=== PATIENT | female | born 1955 | race Caucasian/White ===

== ENCOUNTER 2023-03-24 17:58 | Emergency (ER) | payer OTHER ==
--- OUTSIDE RECORDS SUMMARY | 2023-03-24 18:02 | XMS REPORT | Continuity of Care Document ---
:1955 Author Organization [facility] t Address [address] [place] [address] [place] [id number] Care Team Providers Name Role Phone Alfred BUCKLEY, Eddie Primary Care Physician Natividad CABALLERO, Gege Messer Attending Clinician [phone] Danny BUCKLEY, Randell Lucas Attending Clinician [phone] Viraj Pereira Attending Clinician Payers Payer Name Policy Type Policy Number Effective Date Expiration Date S ource Problems Condition Condition Condition Status Onset Resolution Last Treating Co mments Source Name Details Category Date Date Treatment Clinician Date Malignant Malignant Problem Resolve 2022-04-14 Memoria tumor of tumor of d 02:59:03 l colon colon [place] (disorder) (disorder) Resolved Problem 04/14/20222004 [facility] Crohn's Crohn's Problem Active 2022-04-14 Me moria disease of disease of 02:59:03 l small small González intestine intestine (disorder) (disorder) Active Problem 04/14/2022 [facility] Lumbar Lumbar Problem Active 2022-04-14 Telly jaime radiculiti radiculiti 02:59:03 l s s Active [place] Problem 04/14/2022 [facility] Paresthesi Paresthes Problem Active 2022-04-14 Memoria a ia 02:59:03 l (finding) (finding) Herm scott Active Problem 04/14/2022 [facility] Peripheral Problem Active 2022-04-14 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 González (disorder) disease (disorder) Active Problem 04/14/2022 [facility] Allergies, Adverse Reactions, Alerts Allergy Allergy Status Severity Reaction(s) Onset Inactive Treating Comm ents Source Name Type Date Date Clinician fernando king Active Dayana bautista [place] Social History Social Habit Start Date Stop Date Quantity Comments Source Sexual orientation Method [facility] Gender identity [facility] Social History 2021-07-22 2021-07-22 [facility] 18:21:59 18:21:59 Sex Assigned At [birth year] [facility] 00:00:00 00:00:00 Smoking Status Start Date Stop Date Source Tobacco smoking consumption unknown [facility] Medications Ordered Filled Start Stop Current Ordering Indication Dosage Frequency Signature Comments Components Source Medication Medication Date Date Medication? Clinician (SIG) Name Name baclofen 10 Yes = 1 tab, Me moria mg oral 7-30 PO, l tablet 21:46: Bedtime, # Padma nn 00 90 tab, 2 Refill(s), Pharmacy: [id number], 165.1, cm, 06/13/21 13:34:00 CDT, Height, 63.182, kg, 06/13/21 13:34:00 CDT, Weight pregabalin Yes 75 mg = 1 Me moria 75 MG Oral 7-15 cap, PO, l Capsule 18:49: QPM, # 30 Padma nn [Lyrica] 00 cap, 3 Refill(s), Pharmacy: [facility] #[id number], 165.1, cm, 06/13/21 13:34:00 CDT, Height, 63.182, kg, 06/13/21 13:34:00 CDT, Weight baclofen 10 Yes 10 mg = 1 M emoria mg oral 6-02 tab, PO, l tablet 19:56: Bedtime, # Padma nn 00 30 tab, 2 Refill(s), Pharmacy: [facility] #[id number], 162.56, cm, 05/01/21 14:34:00 CDT, Height, 64.091, kg, 03/07/21 14:33:00 CDT, Weight losartan 25 Yes 25 mg = 1 M emoria mg oral 4-08 tab, PO, l tablet 19:50: Daily, # [place] 00 30 tab, 1 Refill(s) Immunizations Ordered Immunization Filled Immunization Date Status Commen ts Source Name Name influenza virus 2021-11-28 Completed [facility] vaccine, 00:00:00 [place] inactivated<sup>1</s up> Vital Signs Vital Name Observation Time Observation Value Comments Source Systolic (mm Hg) 2021-09-24 18:45:00 Telly rial [place] Diastolic (mm Hg) 2021-09-24 18:45:00 Mem orial [place]lez Heart Rate 2021-09-24 18:45:00 [facility] [place] Respitory Rate 2021-09-24 18:45:00 Memori al González Height 2021-09-24 18:45:00 162.56 cm [facility] [place] Weight 2021-09-24 18:45:00 [facility] [place] BMI Calculated 2021-09-24 18:45:00 Memori al [place] Systolic (mm Hg) 2021-07-22 18:21:00 Telly rial [place] Diastolic (mm Hg) 2021-07-22 18:21:00 Mem orial [place] Heart Rate 2021-07-22 18:21:00 [facility] [place] Respitory Rate 2021-07-22 18:21:00 Memori al [place] Height 2021-07-22 18:21:00 165.1 cm [facility] [place] Weight 2021-07-22 18:21:00 [facility] [place] BMI Calculated 2021-07-22 18:21:00 Memori al González Systolic (mm Hg) 2021-06-13 18:13:00 Telly rial [place] Diastolic (mm Hg) 2021-06-13 18:13:00 Mem orial [place] Heart Rate 2021-06-13 18:13:00 [facility] [place] Respitory Rate 2021-06-13 18:13:00 Memori al [place] Height 2021-06-13 18:13:00 165.1 cm [facility] [place] Weight 2021-06-13 18:13:00 [facility] [place] BMI Calculated 2021-06-13 18:13:00 Memori al [place] Systolic (mm Hg) 2021-05-01 19:22:00 Telly rial González Diastolic (mm Hg) 2021-05-01 19:22:00 Mem orial [place] Heart Rate 2021-05-01 19:22:00 [facility] [place] Respitory Rate 2021-05-01 19:22:00 Memori al González Height 2021-05-01 19:22:00 162.56 cm [facility] [place] Systolic (mm Hg) 2021-03-07 19:05:00 Telly rial González Diastolic (mm Hg) 2021-03-07 19:05:00 Mem orial [place] Heart Rate 2021-03-07 19:05:00 [facility] [place] Respitory Rate 2021-03-07 19:05:00 Memori al González Height 2021-03-07 19:05:00 162.56 cm [facility] [place] Weight 2021-03-07 19:05:00 [facility] [place] BMI Calculated 2021-03-07 19:05:00 Memori al González Procedures Procedure Date / Time Performed Performing Clinician Sour e MRI C[facility] SP[facility] WO 2022-03-26 17:24:[facility] replacement Total hysterectomy [facility] scott Anastomosis of gall [facility] Her pérez bladder Plan of Care Planned Activity Planned Date Details Comments Source Future Scheduled 2023-03-24 Hepatitis C screening [facility] Test 18:01:48 (procedure) [code = [id number]] Future Scheduled 2023-03-24 BREAST CANCER [facility] Test 18:01:48 SCREENING [code = BREAST CANCER SCREENING] Future Scheduled 2023-03-[address] [facility] Test 18:01:48 [code = COLONOSCOPY SCREENING] Future Scheduled 2023-03-24 SHINGLES VACCINES (1 Met [facility] Test 18:01:48 of 2) [code = SHINGLES VACCINES (1 of 2)] Future Scheduled 2023-03-24 COVID-19 VACCINE (4 - [facility] Test 18:01:48 Booster for Moderna series) [code = COVID-19 VACCINE (4 - Booster for Moderna series)] Future Scheduled 2023-03-24 65+ PNEUMOCOCCAL [facility] Test 18:01:48 VACCINE (1 - PCV) [code = 65+ PNEUMOCOCCAL VACCINE (1 - PCV)] Future Scheduled 2023-03-24 [facility]ACCINE [facility] 18:01:48 [code = INFLUENZA VACCINE] Encounters Start End Encounter Admission Attending Care Care Encounter Source Date/Time Date/Time Type Type Clinicians Facility Department ID 2022-05-13 2022-05-13 Office Natividad, 1.2.840.1 [id number] [facility] 13:00:00 13:28:29 Visit Gege 22094.1.[address] [facility] 3.430.2.7 Hospit a .3.811876 l .8 2022-05-13 2022-05-13 Outpatient NATIVIDAD, [facility] [id number] [place] 00:00:00 00:00:00 GEGE Enriquez Method [facility] st 2022-05-06 2022-05-06 Travel 1.2.840.1 [id number] Methodi 00:00:00 00:00:[address] 3.430.2.7 0.2.7.3.698 Ho spita .3.874572 084.8 l .8 2022-04-10 2022-04-12 Outside [facility] MNA [id number] [facility] 18:18:36 04:59:59 Medical r Neurology 00 l Records Restonandreas Walshann 2022-04-10 2022-04-11 Outpatient MHMISCHER MHMISCHER [id number] 13:18:36 23:59:59 00 2022-03-26 2022-03-26 [place] [id number] [facility] 10:49:22 23:59:00 Encounter Randell 00447.1.1 293 s t Lance 3.430.2.7 [facility]osp [facility] .3.910364 l .8 2022-03-26 2022-03-[address] [id number] [facility]i 10:49:08 23:59:00 Encounter Randell 40305.1.1 292 s t Lance 3.430.2.7 [facility]osp [facility] .3.405363 l .8 2022-03-26 2022-03-26 [facility] 1.2.840.1 [id number] [id number] Methodi 00:00:00 00:00:00 35551.1.1 350.1.13.43 927 3.430.2.7 0.2.7.3.698 Ho spita .3.985881 084.8 l .8 2022-03-26 2022-03-26 Outpatient DANNY, [facility] [id number] [place] 00:00:00 00:00:00 [address] 2022-03-26 2022-03-26 Outpatient DANNY, [facility] [id number] [place] 00:00:00 00:00:00 RANDELL [address] 2022-02-25 2022-02-25 Outpatient DANNY, [facility] [id number] [place] 00:00:00 00:00:00 RANDELL [address] 2022-02-25 2022-02-25 Outpatient DANNY, [facility] [id number] [place] 00:00:00 00:00:00 RANDELL [address] 2022-02-25 2022-02-25 Outpatient DANNY, [facility] [id number] [place] 00:00:00 00:00:00 RANDELL [address] 2021-12-25 2021-12-25 Ambulatory nullFlavo MNA [id number] Memoria 19:30:00 19:30:00 Pre-Reg r Neurology 06 l Tony Claudio 2021-12-25 2021-12-25 Outpatient MHIE ALANIE [id number] Memoria 13:30:00 13:30:00 06 l [place] 2021-12-25 2021-12-25 Outpatient CHOLO PereiraSCHJOEY [id number] 13:30:00 13:30:00 Viraj Chan 2021-09-24 2021-09-25 Outpatient nullFlavo MNA [id number] Memoria 18:30:00 04:59:59 r Neurology 05 l Tony Claudio 2021-09-24 2021-09-24 Outpatient CHOLO PereiraSCHJOEY [id number] 13:30:00 23:59:59 Viraj 05 Dustin 2021-09-24 2021-09-24 Outpatient MHIE MHIE [id number] Memoria 13:30:00 13:30:00 05 michele González 2021-07-22 2021-07-23 Outpatient nullFlavo MNA [id number] Memoria 18:00:00 04:59:59 r Neurology 04 michele Tony Claudio 2021-07-22 2021-07-22 Outpatient CHOLO Pereira CHARLEENSCHER [id number] 13:00:00 23:59:59 Viraj 04 Dustin 2021-07-22 2021-07-22 Outpatient MHIE MHIE [id number] Memoria 13:00:00 13:00:00 04 michele González 2021-06-13 2021-06-14 Outpatient nullFlavo MNA [id number] Memoria 18:30:00 04:59:59 r Neurology 03 michele Tony Claudio 2021-06-13 2021-06-13 Outpatient CHOLO Pereira CHARLEENSCHJOEY [id number] 13:30:00 23:59:59 Viraj 03 Dustin 2021-06-13 2021-06-13 Outpatient MHIE MHIE [id number] Memoria 13:30:00 13:30:00 03 michele González 2021-05-01 2021-05-02 Outpatient nullFlavo MNA [id number] Memoria 19:30:00 04:59:59 r Neurology 02 michele Tony Claudio 2021-05-01 2021-05-01 Outpatient CHOLO Pereira [facility]JOEY [id number] 14:30:00 23:59:59 Viraj 02 Dustin 2021-05-01 2021-05-01 Outpatient MHIE MHIE [id number] Memoria 14:30:00 14:30:00 02 michele González 2021-03-20 2021-03-21 Outpatient nullFlavo MNA [id number] Memoria 21:00:00 04:59:59 r Neurology 01 l Tony Claudio 2021-03-20 2021-03-20 Outpatient CHOLO Pereira [facility] [id number] 16:00:00 23:59:59 Viraj 01 Dustin 2021-03-20 2021-03-20 Outpatient MHIE IE [id number] Memoria 16:00:00 16:00:00 01 l González 2021-03-07 2021-03-08 Outpatient nullFlavo MNA [id number] Memoria 19:00:00 04:59:59 r Neurology 00 l Tony Claudio 2021-03-07 2021-03-07 Outpatient Kelli [facility] [id number] 14:00:00 23:59:59 Viraj 00 Dustin 2021-03-07 2021-03-07 Outpatient ALANIE TERRENCE [id number] Memoria 14:00:00 14:00:00 00 michele Claudio Results This patient has no known results.
[2023-03-24] MEDS ORDERED: METHYLPREDNISOLONE 125 MG INJ ONE (19:11)
[2023-03-24] MEDS ORDERED: FAMOTIDINE 20 MG/2 ML VIAL IV ONE (19:12)
[2023-03-24] MEDS ORDERED: DIPHENHYDRAMINE 50 MG/ML VIAL ONE (19:12)
[2023-03-24 19:46] LABS: Hematocrit 44.1 % (36.0-45.0); Lymphocytes % 12.5 % (15.3-44.8); MPV 7.6 fL (7.6-11.3)
--- NOTE | 2023-03-24 20:25 | RAD REPORT ---
EXAM DESCRIPTION: RAD - Chest Single View - 03/24/2023 8:11 pm CLINICAL HISTORY: CHEST PAIN Chest pain. COMPARISON: <Comparisons> FINDINGS: Portable technique limits examination quality. The lungs are grossly clear. The heart is normal in size. No displaced fractures. IMPRESSION: No acute intrathoracic process suspected.
[2023-03-24] MEDS ORDERED: ACETAMINOPHEN 325 MG TABLET ONE (20:36)
[2023-03-24 21:04] LABS: Troponin High Sensitivity 3.4 pg/mL (<58.9)
[2023-03-24 21:07] LABS: Potassium 4.4 mEq/L (3.5-5.1)
--- NOTE | 2023-03-24 21:22 | EDPHYS ---
Physician Documentation [facility] Name: Meredith Hewitt Age: 67 yrs Sex: Female : 1955 Arrival Date: 03/24/2023 Time: 17:58 Bed 4 Private MD: Eddie Simon V ED Physician Raz Bautista HPI: 03/24 18:49 This 67 yrs old Female presents to ER via Ambulatory with complaints of Allergic cp Reaction To Meds. 18:50 The patient's rash thought to be caused by medication. The rash is located on the chest.cp 18:50 The rash can be described as vesicular, itchy. Onset: The symptoms/episode cp began/occurred today. Associated signs and symptoms: Pertinent positives: itching, Pertinent negatives: difficulty breathing, fever, swelling of lips, swelling of throat, swelling of tongue, shortness of breath. Severity of symptoms: in the emergency department the symptoms are unchanged. Treatment given at home: none. Patient reports receiving injection for new medication, Cimzia, for Crohn's disease this morning. Shortly after receiving injection, started itching all over and noticed rash on chest. Symptoms have continued to worsen throughout day. Denies shortness of breath, denies difficulty swallowing and/or feeling of throat closing. Historical: - Allergies: 18:42 PENICILLINS; ap3 18:42 Cimzia; ap3 - PMHx: 18:42 Crohn's; ap3 - Immunization history:: Client reports receiving the 2nd dose of the Covid vaccine. - Social history:: Smoking status: Patient reports the use of cigarette tobacco products, smokes one-half pack cigarettes per day. ROS: 18:55 Constitutional: Negative for body aches, chills, fever, poor PO intake. cp 18:55 Cardiovascular: Positive for chest pain. cp 18:55 Skin: Positive for rash. 18:55 Eyes: Negative for injury, pain, redness, and discharge. cp 18:55 ENT: Negative for drainage from ear(s), ear pain, sore throat, difficulty swallowing, cp difficulty handling secretions. 18:55 Respiratory: Negative for shortness of breath, wheezing. 18:55 Abdomen/GI: Negative for abdominal pain, vomiting, diarrhea, constipation. 18:55 Neuro: Negative for altered mental status, headache, weakness. 18:55 All other systems are negative. Exam: 19:00 Constitutional: The patient appears in no acute distress, alert, awake, cp non-diaphoretic, non-toxic, well developed, well nourished. 19:00 Head/Face: Normocephalic, atraumatic. cp 19:00 Eyes: Periorbital structures: appear normal, Conjunctiva: normal, no exudate, no injection, Sclera: no appreciated abnormality, Lids and lashes: appear normal, bilaterally. 19:00 ENT: External ear(s): are unremarkable, Nose: is normal, Mouth: Lips: moist, Oral mucosa: moist, Posterior pharynx: is normal, airway is patent, no erythema, no exudate. 19:00 Neck: ROM/movement: is normal, is supple, without pain, no range of motions limitations, no meningismus. 19:00 Chest/axilla: Inspection: rash, that is mild. 19:00 Cardiovascular: Rate: normal, Rhythm: regular, Edema: is not appreciated, JVD: is not appreciated. 19:00 Respiratory: the patient does not display signs of respiratory distress, Respirations: normal, no use of accessory muscles, no retractions, labored breathing, is not present, Breath sounds: are clear throughout, no decreased breath sounds, no stridor, no wheezing. 19:00 Abdomen/GI: Inspection: abdomen appears normal, Palpation: abdomen is soft and non-tender, in all quadrants. 19:00 Skin: rash can be described as vesicular, on the chest. 19:00 Neuro: Orientation: to person, place \T\ time. Mentation: is normal. 19:52 ECG was reviewed by the Attending Physician. cp Vital Signs: 18:39 BP 142 / 86; Pulse 82; Resp 19; Temp 98.5; Pulse Ox 100% ; Weight 63.5 kg; Height 5 ft. ap3 4 in. ; Pain 0/10; 19:26 BP 156 / 82; Pulse 85; Resp 17 S; Pulse Ox 100% on R/A; aa9 20:30 BP 146 / 85; Pulse 85; Resp 17; Pulse Ox 99% on R/A; aa9 21:33 BP 139 / 83; Pulse 75; Resp 15 S; Temp 98.8; Pulse Ox 98% ; aa9 18:39 Body Mass Index 24.03 (63.50 kg, 162.56 cm) ap3 18:39 Pain Scale: Adult ap3 MDM: 18:48 Patient medically screened. cp 19:00 Differential diagnosis: allergic reaction, anaphylaxis, cellulitis, dermatitis. cp 21:22 Data reviewed: vital signs, nurses notes, lab test result(s), radiologic studies, plain cp films. 21:22 Consideration of Admission/Observation Escalation of care including cp admission/observation considered. I considered the following discharge prescriptions or medication management in the emergency department Medications were administered in the Emergency Department. See MAR. Independent interpretation of the following test(s) in the Emergency Department EKG: See my EKG interpretation above X-Ray: My interpretation is chest image negative for infiltrates. Counseling: I had a detailed discussion with the patient and/or guardian regarding: the historical points, exam findings, and any diagnostic results supporting the discharge/admit diagnosis, lab results, radiology results, to return to the emergency department if symptoms worsen or persist or if there are any questions or concerns that arise at home. Response to treatment: the patient's symptoms have markedly improved after treatment, and as a result, I will discharge patient. 03/24 18:51 Order name: Basic Metabolic Panel; Complete Time: 21:16 03/24 21:16 Interpretation: Normal except: GLUC 112; GFR 74. 03/24 18:51 Order name: CBC with Diff; Complete Time: 21:16 03/24 21:16 Interpretation: Normal except: WBC 16.20; RBC 4.90; ENRIQUE% 81.5; LYM% 12.5; NEUT A 13.2. 03/24 18:51 Order name: Troponin HS; Complete Time: 21:16 03/24 21:18 Interpretation: Reviewed. 03/24 18:51 Order name: XRAY Chest (1 view); Complete Time: 21:16 03/24 18:51 Order name: EKG; Complete Time: 18:52 03/24 18:51 Order name: EKG - Nurse/Tech; Complete Time: 19:52 03/24 18:51 Order name: IV; Complete Time: 19:24 03/24 18:51 Order name: Cardiac monitoring; Complete Time: 19:24 03/24 18:51 Order name: Labs collected and sent; Complete Time: 19:24 03/24 18:51 Order name: O2 Per Protocol; Complete Time: 19:24 cp 03/24 18:51 Order name: O2 Sat Monitoring; Complete Time: 19:24 cp 03/24 19:44 Order name: Misc. Order: Lab Recollect; Complete Time: 20:37 rv1 EC:52 Rate is 86 beats/min. Rhythm is regular. SC interval is normal. QRS interval is normal. cp QT interval is normal. T waves are Inverted in lead aVR. Interpreted by me. Reviewed by me. Administered Medications: 19:15 Drug: Famotidine IVP 20 mg Route: IVP; Site: right antecubital; aa9 20:37 Follow up: Response: No adverse reaction aa9 20:37 Follow up: Response: No adverse reaction aa9 19:20 Drug: diphenhydrAMINE IVP 50 mg Route: IVP; Site: right antecubital; aa9 19:24 Drug: MethylPrednisoLONE IVP 125 mg Route: IVP; Site: right antecubital; aa9 20:39 Drug: Acetaminophen PO 650 mg Route: PO; aa9 21:18 CANCELLED (Physician Discretion): NS 0.9% IV 500 ml IV at bolus once cp Disposition: 18:54 Co-signature as Attending Physician, Raz VILLALBA was immediately available on-site ms3 in the Emergency Department for consultation in the care of the patient. Disposition Summary: 03/24/23 21:22 Discharge Ordered Location: Home cp Problem: new cp Symptoms: have improved cp Condition: Stable cp Diagnosis - Allergy status to unspecified drugs, medicaments and biological substances status cp Followup: cp - With: Private Physician - When: 1 - 2 days - Reason: Recheck today's complaints Discharge Instructions: - Discharge Summary Sheet cp - Drug Allergy cp Forms: - Medication Reconciliation Form cp - Thank You Letter cp - Antibiotic Education cp - Prescription Opioid Use cp Prescriptions: - Pepcid 20 mg Oral Tablet - take 1 tablet by ORAL route every 12 hours for 10 days; 20 tablet; Refills: 0, cp Product Selection Permitted - Zyrtec 10 mg Oral Tablet - take 1 tablet by ORAL route once daily As needed; 10 tablet; Refills: 0, cp Product Selection Permitted - Prednisone 20 mg Oral Tablet - take 2 tablets by ORAL route once daily for 5 days then take 1 tablet daily for cp 3 days and the 1/2 tablet daily for 2 days; 14 tablet; Refills: 0, Product Selection Permitted Signatures: Dispatcher [employer] EDMS Torito Lovett PA PA cp Prokisch, Amanda, RN RN ap3 Raz Bautista DO DO ms3 Brenda Hawkins, RN RN aa9 Deepika Javier rv1 Corrections: (The following items were deleted from the chart) 21:18 21:18 NS 0.9% IV 500 ml IV at bolus once ordered. cp cp 03/25 20:39 03/24 18:50 Patient reports receiving injection for new medication, Cimzia, for cp diabetes this morning. Shortly after receiving injection, started itching all over and noticed rash on chest. Symptoms have continued to worsen throughout day. Denies shortness of breath, denies difficulty swallowing and/or feeling of throat closing. cp
--- NOTE | 2023-03-24 21:22 | ER ---
Nurse's Notes [facility] Name: Meredith Hewitt Age: 67 yrs Sex: Female : 1955 Arrival Date: 03/24/2023 Time: 17:58 Bed 4 Private MD: Eddie Simon V Diagnosis: Allergy status to unspecified drugs, medicaments and biological substances status Presentation: 03/24 18:39 Chief complaint: Patient states: she was given a new medication- Cimzia, this morning ap3 that was an injection. patient states that within 30 minutes she started having a few spots that were itchy, and approx 3 hours after the medication she felt her skin was reddened and she was experiencing generalized itching. Coronavirus screen: At this time, the client does not indicate any symptoms associated with coronavirus-19. Ebola Screen: No symptoms or risks identified at this time. Initial Sepsis Screen: Does the patient meet any 2 criteria? No. Patient's initial sepsis screen is negative. Does the patient have a suspected source of infection? No. Patient's initial sepsis screen is negative. Risk Assessment: Do you want to hurt yourself or someone else? Patient reports no desire to harm self or others. Onset of symptoms was March 24, 2023. 18:39 Method Of Arrival: Ambulatory ap3 18:39 Acuity: ANUEL 3 ap3 Triage Assessment: 18:42 General: Appears in no apparent distress. Behavior is calm, cooperative. Pain: Denies ap3 pain. Neuro: Level of Consciousness is awake, alert, obeys commands, Oriented to person, place, time, situation. Cardiovascular: Patient's skin is warm and dry. Respiratory: Airway is patent Respiratory effort is even, unlabored, Respiratory pattern is regular, symmetrical. Derm: Reports itching. Historical: - Allergies: 18:42 PENICILLINS; ap3 18:42 Cimzia; ap3 - PMHx: 18:42 Crohn's; ap3 - Immunization history:: Client reports receiving the 2nd dose of the Covid vaccine. - Social history:: Smoking status: Patient reports the use of cigarette tobacco products, smokes one-half pack cigarettes per day. Screenin:43 Abuse screen: Denies threats or abuse. Nutritional screening: No deficits noted. ap3 Tuberculosis screening: No symptoms or risk factors identified. 21:33 [facility] ED Fall Risk Assessment (Adult) History of falling in the last 3 months, aa9 including since admission No falls in past 3 months (0 pts) Confusion or Disorientation No (0 pts) Intoxicated or Sedated Yes (3 pts) Impaired Gait No (0 pts) Mobility Assist Device Used No (0 pt) Altered Elimination No (0 pt) Score/Fall Risk Level 0 - 2 = Low Risk Oriented to surroundings, Educated pt \T\ family on fall prevention, incl call for assistance when getting out of bed, Assessed \T\ reinforced patient's understanding of fall precautions. Assessment: 19:25 General: Appears comfortable, slender, well groomed, Behavior is calm, cooperative. aa9 Pain: Complains of pain in headache Pain currently is 4 out of 10 on a pain scale. Neuro: Level of Consciousness is awake, alert, obeys commands, Oriented to person, place, time, situation. Cardiovascular: Patient's skin is warm and dry. Rhythm is regular. Respiratory: Airway is patent Respiratory effort is even, unlabored. GI: Patient currently denies nausea, vomiting. : No signs and/or symptoms were reported regarding the genitourinary system. Derm: Reports itching. 19:28 Reassessment: reports headache, notified provider. aa9 21:33 Reassessment: Patient appears in no apparent distress at this time. Patient is alert, aa9 oriented x 3, equal unlabored respirations, skin warm/dry/pink. Patient states feeling better. Vital Signs: 18:39 BP 142 / 86; Pulse 82; Resp 19; Temp 98.5; Pulse Ox 100% ; Weight 63.5 kg; Height 5 ft. ap3 4 in. ; Pain 0/10; 19:26 BP 156 / 82; Pulse 85; Resp 17 S; Pulse Ox 100% on R/A; aa9 20:30 BP 146 / 85; Pulse 85; Resp 17; Pulse Ox 99% on R/A; aa9 21:33 BP 139 / 83; Pulse 75; Resp 15 S; Temp 98.8; Pulse Ox 98% ; aa9 18:39 Body Mass Index 24.03 (63.50 kg, 162.56 cm) ap3 18:39 Pain Scale: Adult ap3 ED Course: 18:01 Patient arrived in ED. rg4 18:01 Eddie Simon MD is Private Physician. rg4 18:08 Torito Lovett PA is PHCP. cp 18:08 Raz Bautista DO is Attending Physician. cp 18:42 Triage completed. ap3 18:43 Arm band placed on right wrist. ap3 19:06 Kenya Key, RN is Primary Nurse. iw 19:07 Primary Nurse role handed off by Kenya Key, RN aa9 19:07 Brenda Hawkins, KAMILLA is Primary Nurse. aa9 19:15 Inserted saline lock: 20 gauge in right antecubital area, using aseptic technique. aa9 Blood collected. 19:24 Basic Metabolic Panel Sent. aa9 19:24 CBC with Diff Sent. aa9 19:24 Troponin HS Sent. aa9 20:13 XRAY Chest (1 view) In Process Unspecified. EDMS 21:00 Patient has correct armband on for positive identification. Bed in low position. Call aa9 light in reach. Side rails up X2. 21:00 Client placed on continuous cardiac and pulse oximetry monitoring. NIBP monitoring aa9 applied. 21:32 No provider procedures requiring assistance completed. IV discontinued, intact, aa9 bleeding controlled, No redness/swelling at site. Pressure dressing applied. Administered Medications: 19:15 Drug: Famotidine IVP 20 mg Route: IVP; Site: right antecubital; aa9 20:37 Follow up: Response: No adverse reaction aa9 20:37 Follow up: Response: No adverse reaction aa9 19:20 Drug: diphenhydrAMINE IVP 50 mg Route: IVP; Site: right antecubital; aa9 19:24 Drug: MethylPrednisoLONE IVP 125 mg Route: IVP; Site: right antecubital; aa9 20:39 Drug: Acetaminophen PO 650 mg Route: PO; aa9 21:18 CANCELLED (Physician Discretion): NS 0.9% IV 500 ml IV at bolus once cp Medication: 21:33 VIS not applicable for this client. aa9 Outcome: 21:22 Discharge ordered by . cp 21:33 Discharged to home ambulatory. aa9 21:33 Condition: stable 21:33 Discharge instructions given to patient, Instructed on discharge instructions, follow up and referral plans. medication usage, Demonstrated understanding of instructions, follow-up care, medications, Prescriptions given X 3. 21:34 Patient left the ED. aa9 Signatures: Dispatcher T-[employer] Kenya Guzman, RN RN iw Torito Lovett PA PA cp Garcia, Rubi rg4 Paulette Avalos RN RN ap3 Brenda Hawkins, RN RN aa9
[2023-03-24 22:58] VITALS: BP 139/83; TEMP 98.8; O2SAT 98
--- NOTE | 2023-03-27 07:07 | EKG ---
Test Date: 2023-03-24 Test Time: 19:44:37 Track Watchman: KARI MEASUREMENT RESULTS: Intervals: Rate: 86 PA: 150 QRSD: 80 QT: 360 QTc: 430 [place]: P: 42 PA: 150 QRS: -21 T: 59 INTERPRETIVE STATEMENTS: Normal sinus rhythm Septal infarct, age undetermined Abnormal ECG Compared to ECG 12/14/2006 11:18:43 Myocardial infarct finding now present Electronically Signed On 03-27-23 07:00:39 CDT by Varun Cardenas
== END 2023-03-24 21:34 | disposition home or self-care (01) ==
LOC: ER 17:58
DX: R21 Rash and other nonspecific skin eruption (principal); Z91.09 Other allergy status, other than to drugs and biological substances
CPT/HCPCS: 93005; 85025; 80048; 36415; 84484; 71045; 96375; 96374; 99284; J1200; J2930